=== PATIENT | female | born 1980 | race Caucasian/White ===

== ENCOUNTER 2020-06-20 22:29 | Emergency (ER) | payer MEDICAID ==
[~2020-06-20] VITALS: Ht 157.5 cm; Wt 61.8 kg
[~2020-06-20 22:29] MED LIST: CETIRIZINE10 MG PO; DEXILANT30 MG PO; IRON65 M1 PO; ST. JOSEPH81 M1 PO; proair INH; vit C
[2020-06-20 22:33] VITALS: BP 139/90; TEMP 98.8
[2020-06-21 00:17] VITALS: PULSE 77
== END 2020-06-21 00:17 | disposition home or self-care (01) ==
LOC: COL.ER 22:29
DX: N64.4 Mastodynia (principal); Z32.02 Encounter for pregnancy test, result negative; Z23 Encounter for immunization; Z79.82 Long term (current) use of aspirin